=== PATIENT | female | born 1940 | race Caucasian/White ===

== ENCOUNTER 2017-06-27 10:30 | Day surgery (SDC) | payer MEDICARE, OTHER ==
[~2017-06-27] VITALS: Ht 157.5 cm; Wt 80.7 kg
[~2017-06-27 10:30] MED LIST: ATOR80TA PO; BUPR150T73 PO; ESCI20TA PO; LEVO200T5 PO; LITH300T3 PO; LORA0.5T PO; METF500T4 PO; METO25TA91 PO; OMEP-110 PO; ZIPR80CA3 PO
[2017-06-27] MEDS ORDERED: LACTATED RINGERS 1,000 ML IV SCH (11:17)
[2017-06-27 11:21] VITALS: BP 130/66
[2017-06-27 11:59] LABS: ASPARTATE AMINO TRANSFERASE 8 U/L (15-37); BLOOD UREA NITROGEN 13 mg/dL (7-18)
[2017-06-27] MEDS ORDERED: METOPROLOL 1 MG/ML, 5ML ONE (12:36)
[2017-06-27] MEDS ORDERED: LIDOCAINE 2%, 10ML ONE (12:36)
[2017-06-27] MEDS ORDERED: PROPOFOL 10 MG/ML, 20ML ONE ×2 (12:36)
== END 2017-06-27 17:20 ==
LOC: OUT 10:30
PROVIDERS: ATTEND Internal Medicine
DX: K29.50 Unspecified chronic gastritis without bleeding (principal); K57.30 Diverticulosis of large intestine without perforation or abscess without bleeding; K64.8 Other hemorrhoids; J44.9 Chronic obstructive pulmonary disease, unspecified; F41.9 Anxiety disorder, unspecified; I10 Essential (primary) hypertension; K21.9 Gastro-esophageal reflux disease without esophagitis; Z85.048 Personal history of other malignant neoplasm of rectum, rectosigmoid junction, and anus; Z87.39 Personal history of other diseases of the musculoskeletal system and connective tissue; Z98.890 Other specified postprocedural states; Z90.710 Acquired absence of both cervix and uterus; Z95.0 Presence of cardiac pacemaker
CPT/HCPCS: 36415; 43239; 45380; 80053; 88305; 93005; J2704; J3490; J7120

== ENCOUNTER 2018-07-18 17:47 | Inpatient (IN) | payer MEDICARE ==
[~2018-07-18] VITALS: Ht 157.5 cm; Wt 79.2 kg
[~2018-07-18 17:47] MED LIST changes: +METF500T17 PO; -METF500T4 PO
[2018-07-19 10:38] VITALS: BP 127/75
[2018-07-19] MEDS ORDERED: DOCUSATE 100 MG CAPSULE PO PRN (11:30)
[2018-07-19] MEDS ORDERED: POLYETHYLENE GLYCOL 17 GM PACKET PO PRN (11:30)
[2018-07-19] MEDS ORDERED: APIX5TAB PO (11:52)
[2018-07-19] MEDS ORDERED: FLUC100T4 PO (11:52)
[2018-07-19] MEDS ORDERED: PLEASE ENTER HEIGHT AND WEIGHT MC SCH (12:00)
[2018-07-19 12:47] VITALS: BP 127/75
[2018-07-19 15:46] LABS: CHOL/HDL RATIO 3.4; FREE T4 (FREE THYROXINE) 0.83 ng/dL (0.76-1.46); LDL/HDL RATIO 1.8 (0.5-3.0); THYROID STIMULATING HORMONE 8.06 mIU/L (0.358-3.740)
[2018-07-19] MEDS ORDERED: NICOTINE 21 MG/24 HR PATCH.TD24 TD ONE (16:00)
[2018-07-19] MEDS: NICOTINE 21 MG/24 HR PATCH.TD24 TD SCH (17:09)
[2018-07-19] MEDS ORDERED: ALBUTEROL SULFATE 2.5 MG/3 ML NPPB PRN (18:00)
[2018-07-19 19:33] VITALS: BP 142/90
[2018-07-19] MEDS ORDERED: TEMPLATE NON-FORMULARY MED. (Escitalopram Oxalate** 20 MG) PO SCH (21:00)
[2018-07-19] MEDS: CLOTRIMAZOLE CRM 1%, 15GM TP SCH (21:00)
[2018-07-19] MEDS: DIVALPROEX 250 MG TABLET.DR PO SCH (21:20)
[2018-07-19] MEDS: APIXABAN 5 MG TABLET PO SCH (21:22)
[2018-07-19] MEDS: ACETAMINOPHEN 325 MG TABLET PO PRN (23:56)
[2018-07-20 04:43] LABS: MICROSCOPIC NOT IND
[2018-07-20 04:50] LABS: CULTURE INDICATED? NO
[2018-07-20 05:20] LABS: ANION GAP 7 mmol/L (5-15); BASOPHILS # (AUTO) 0.05 x10^3/uL (0-0.1); BASOPHILS % (AUTO) 1 % (0-1); CHLORIDE 106 mmol/L (98-107); CREATININE 0.75 mg/dL (0.55-1.02); EOSINOPHILS # (AUTO) 0.29 x10^3/uL (0-0.4); EOSINOPHILS % (AUTO) 4 % (1-7); LYMPHOCYTES # (AUTO) 1.57 x10^3/uL (1-3.4); LYMPHOCYTES % (AUTO) 22 % (22-44); MD NO; MEAN CORPUSCULAR HEMOGLOBIN 29.6 pg (27.0-34.8); MEAN CORPUSCULAR HGB CONC 33.2 g/dL (32.4-35.8); MEAN CORPUSCULAR VOLUME 89.2 fL (80-100); MEAN PLATELET VOLUME 8.6 fL (7.4-10.4); MONOCYTES # (AUTO) 0.51 x10^3/uL (0.2-0.8); MONOCYTES % (AUTO) 7 % (2-9); NEUTROPHILS # (AUTO) 4.59 x10^3/uL (1.8-6.8); NEUTROPHILS % (AUTO) 66 % (42-75); PLATELET COUNT 244 x10^3/uL (130-400); RED BLOOD COUNT 4.39 x10^6/uL (3.82-5.3); RED CELL DISTRIBUTION WIDTH 17.1 % (9.6-15.2)
[2018-07-20 07:55] VITALS: BP 115/68
[2018-07-20] MEDS ORDERED: FLUCONAZOLE 100 MG PO SCH (09:00)
[2018-07-20] MEDS ORDERED: FLUCONAZOLE 100 MG TABLET PO SCH (09:00)
[2018-07-20] MEDS: LEVOTHYROXINE 200 MCG TABLET PO SCH (09:14)
[2018-07-20] MEDS: DIVALPROEX 250 MG TABLET.DR PO SCH ×2 (09:15→20:48)
[2018-07-20] MEDS: APIXABAN 5 MG TABLET PO SCH ×2 (09:15→20:48)
[2018-07-20] MEDS: ZIPRASIDONE 40MG CAPSULE PO SCH (09:15)
[2018-07-20] MEDS: metFORMIN 500 MG TABLET PO SCH (09:15)
[2018-07-20] MEDS: METOPROLOL SUCCINATE 25 MG TAB.ER.24H PO SCH (09:16)
[2018-07-20] MEDS: NICOTINE 21 MG/24 HR PATCH.TD24 TD SCH (17:12)
[2018-07-20] MEDS: CITALOPRAM 20 MG TABLET PO SCH (20:48)
[2018-07-20] MEDS: CLOTRIM/BETAMETH 1%/0.05% CRM TP SCH (20:52)
[2018-07-21] MEDS ORDERED: HYDROcodone/CHLORPHENIR ORAL SUSP PO ONE ×2 (02:30→03:00)
[2018-07-21] MEDS: LORazepam 0.5MG TABLET PO PRN (03:12)
[2018-07-21 08:17] VITALS: BP 103/66
[2018-07-21 08:42] VITALS: BP 110/68
[2018-07-21] MEDS: LEVOTHYROXINE 200 MCG TABLET PO SCH (08:43)
[2018-07-21] MEDS: ZIPRASIDONE 40MG CAPSULE PO SCH (08:43)
[2018-07-21] MEDS: METOPROLOL SUCCINATE 25 MG TAB.ER.24H PO SCH (08:43)
[2018-07-21] MEDS: APIXABAN 5 MG TABLET PO SCH ×2 (08:44→19:44)
[2018-07-21] MEDS: DIVALPROEX 250 MG TABLET.DR PO SCH ×2 (08:44→19:44)
[2018-07-21] MEDS: metFORMIN 500 MG TABLET PO SCH (08:44)
[2018-07-21] MEDS: CLOTRIM/BETAMETH 1%/0.05% CRM TP SCH ×2 (09:12→20:16)
[2018-07-21] MEDS: FLUCONAZOLE 100 MG TABLET PO SCH (09:50)
[2018-07-21] MEDS: NICOTINE 21 MG/24 HR PATCH.TD24 TD SCH (15:51)
[2018-07-21] MEDS: CITALOPRAM 20 MG TABLET PO SCH (19:44)
[2018-07-21 19:50] VITALS: BP 101/69
[2018-07-22 07:30] VITALS: BP 111/74
[2018-07-22] MEDS ORDERED: LEVOTHYROXINE 100 MCG TABLET ONE (07:35)
[2018-07-22] MEDS: LEVOTHYROXINE 200 MCG TABLET PO SCH (07:37)
[2018-07-22] MEDS: CLOTRIM/BETAMETH 1%/0.05% CRM TP SCH ×2 (09:00→20:05)
[2018-07-22] MEDS: METOPROLOL SUCCINATE 25 MG TAB.ER.24H PO SCH (09:01)
[2018-07-22] MEDS: metFORMIN 500 MG TABLET PO SCH (09:01)
[2018-07-22] MEDS: FLUCONAZOLE 100 MG TABLET PO SCH (09:02)
[2018-07-22] MEDS: APIXABAN 5 MG TABLET PO SCH ×2 (09:02→20:04)
[2018-07-22] MEDS: ZIPRASIDONE 40MG CAPSULE PO SCH (09:03)
[2018-07-22] MEDS: DIVALPROEX 250 MG TABLET.DR PO SCH (09:03)
[2018-07-22] MEDS: LORazepam 0.5MG TABLET PO PRN (15:09)
[2018-07-22] MEDS: NICOTINE 21 MG/24 HR PATCH.TD24 TD SCH (16:14)
[2018-07-22 19:47] VITALS: BP 134/61
[2018-07-22] MEDS: ACETAMINOPHEN 325 MG TABLET PO PRN (20:04)
[2018-07-22] MEDS: DIVALPROEX 500 MG TABLET.DR PO SCH (20:04)
[2018-07-22] MEDS: CITALOPRAM 20 MG TABLET PO SCH (20:04)
[2018-07-23] MEDS: ACETAMINOPHEN 325 MG TABLET PO PRN ×2 (02:29→20:21)
[2018-07-23] MEDS: LORazepam 0.5MG TABLET PO PRN (07:41)
[2018-07-23 07:45] VITALS: BP 119/72
[2018-07-23] MEDS: APIXABAN 5 MG TABLET PO SCH ×2 (08:49→20:11)
[2018-07-23] MEDS: DIVALPROEX 250 MG TABLET.DR PO SCH (08:49)
[2018-07-23] MEDS: FLUCONAZOLE 100 MG TABLET PO SCH (08:49)
[2018-07-23] MEDS: METOPROLOL SUCCINATE 25 MG TAB.ER.24H PO SCH (08:50)
[2018-07-23] MEDS: metFORMIN 500 MG TABLET PO SCH (08:50)
[2018-07-23] MEDS: LEVOTHYROXINE 200 MCG TABLET PO SCH (08:50)
[2018-07-23] MEDS: CLOTRIM/BETAMETH 1%/0.05% CRM TP SCH ×2 (08:51→20:21)
[2018-07-23] MEDS: ZIPRASIDONE 40MG CAPSULE PO SCH (08:54)
[2018-07-23] MEDS ORDERED: DIVALPROEX 250 MG TABLET.DR PO SCH (09:00)
[2018-07-23] MEDS: NICOTINE 21 MG/24 HR PATCH.TD24 TD SCH (16:05)
[2018-07-23 19:47] VITALS: BP 108/64
[2018-07-23] MEDS: DIVALPROEX 500 MG TABLET.DR PO SCH (20:12)
[2018-07-23] MEDS: CITALOPRAM 20 MG TABLET PO SCH (20:12)
[2018-07-24] MEDS: LORazepam 0.5MG TABLET PO PRN (07:35)
[2018-07-24 07:49] VITALS: BP 120/74
[2018-07-24] MEDS: APIXABAN 5 MG TABLET PO SCH ×2 (08:48→21:17)
[2018-07-24] MEDS: FLUCONAZOLE 100 MG TABLET PO SCH (08:48)
[2018-07-24] MEDS: DIVALPROEX 250 MG TABLET.DR PO SCH (08:48)
[2018-07-24] MEDS: ZIPRASIDONE 40MG CAPSULE PO SCH (08:49)
[2018-07-24] MEDS: LEVOTHYROXINE 200 MCG TABLET PO SCH (08:49)
[2018-07-24] MEDS: metFORMIN 500 MG TABLET PO SCH (08:49)
[2018-07-24] MEDS: METOPROLOL SUCCINATE 25 MG TAB.ER.24H PO SCH (08:50)
[2018-07-24] MEDS: CLOTRIM/BETAMETH 1%/0.05% CRM TP SCH ×2 (08:50→21:18)
[2018-07-24] MEDS: NICOTINE 21 MG/24 HR PATCH.TD24 TD SCH (16:06)
[2018-07-24] MEDS ORDERED: LEVO200T5 PO (17:59)
[2018-07-24] MEDS ORDERED: CITA20TA9 PO (17:59)
[2018-07-24] MEDS ORDERED: DIVA-61 PO (17:59)
[2018-07-24] MEDS ORDERED: ZIPR80CA3 PO (17:59)
[2018-07-24] MEDS ORDERED: METO25TA91 PO (17:59)
[2018-07-24] MEDS ORDERED: METF500T PO (17:59)
[2018-07-24] MEDS ORDERED: NICO-487 TD (17:59)
[2018-07-24] MEDS ORDERED: APIX5TAB PO (17:59)
[2018-07-24] MEDS ORDERED: DIVA-59 PO (17:59)
[2018-07-24 19:39] VITALS: BP 120/77
[2018-07-24] MEDS: DIVALPROEX 500 MG TABLET.DR PO SCH (21:17)
[2018-07-24] MEDS: CITALOPRAM 20 MG TABLET PO SCH (21:17)
[2018-07-24] MEDS: ACETAMINOPHEN 325 MG TABLET PO PRN (21:17)
[2018-07-25] MEDS: ACETAMINOPHEN 325 MG TABLET PO PRN (04:41)
[2018-07-25] MEDS: LORazepam 0.5MG TABLET PO PRN (07:29)
[2018-07-25 07:30] VITALS: BP 110/68
[2018-07-25] MEDS: FLUCONAZOLE 100 MG TABLET PO SCH (08:55)
[2018-07-25] MEDS: DIVALPROEX 250 MG TABLET.DR PO SCH (08:55)
[2018-07-25] MEDS: APIXABAN 5 MG TABLET PO SCH (08:55)
[2018-07-25] MEDS: ZIPRASIDONE 40MG CAPSULE PO SCH (08:56)
[2018-07-25] MEDS: metFORMIN 500 MG TABLET PO SCH (08:56)
[2018-07-25] MEDS: LEVOTHYROXINE 200 MCG TABLET PO SCH (08:56)
[2018-07-25] MEDS: CLOTRIM/BETAMETH 1%/0.05% CRM TP SCH (08:57)
[2018-07-25] MEDS: METOPROLOL SUCCINATE 25 MG TAB.ER.24H PO SCH (08:57)
== END 2018-07-25 12:00 | disposition home or self-care (01) | DRG 885 ==
LOC: 3E 07-19 10:29
PROVIDERS: ADMIT Psychiatry & Neurology Psychosomatic Medicine; ATTEND Psychiatry & Neurology Psychosomatic Medicine
DX: F31.2 Bipolar disorder, current episode manic severe with psychotic features (principal); J96.10 Chronic respiratory failure, unspecified whether with hypoxia or hypercapnia; D68.59 Other primary thrombophilia; B37.0 Candidal stomatitis; Z95.0 Presence of cardiac pacemaker; F17.200 Nicotine dependence, unspecified, uncomplicated; E11.9 Type 2 diabetes mellitus without complications; E03.9 Hypothyroidism, unspecified; K21.9 Gastro-esophageal reflux disease without esophagitis; J44.9 Chronic obstructive pulmonary disease, unspecified; F90.9 Attention-deficit hyperactivity disorder, unspecified type; F41.9 Anxiety disorder, unspecified; K64.8 Other hemorrhoids; I10 Essential (primary) hypertension; I48.0 Paroxysmal atrial fibrillation; K22.70 Barrett's esophagus without dysplasia; K31.9 Disease of stomach and duodenum, unspecified; Z79.84 Long term (current) use of oral hypoglycemic drugs; Z79.899 Other long term (current) drug therapy; Z90.710 Acquired absence of both cervix and uterus; Z91.19 Patient's noncompliance with other medical treatment and regimen; Z71.6 Tobacco abuse counseling; Z88.2 Allergy status to sulfonamides; Z88.8 Allergy status to other drugs, medicaments and biological substances; Z90.89 Acquired absence of other organs
CPT/HCPCS: 36415; 71045; 80048; 80061; 80164; 81003; 82140; 82607; 84439; 84443; 85025; 86592; 93005; 92523-GN

== ENCOUNTER 2019-01-14 16:42 | Emergency (ER) | payer MEDICARE ==
[~2019-01-14] VITALS: Ht 162.6 cm; Wt 73.8 kg
[~2019-01-14 16:42] MED LIST changes: +APIX5TAB PO; +CITA20TA9 PO; +DIVA-59 PO; +DIVA-61 PO; +FLUC100T4 PO; +METF500T PO; +NICO-487 TD
[2019-01-14] MEDS ORDERED: SODIUM CHLORIDE FLUSH 10ML SYR IVF ONE (17:00)
[2019-01-14] MEDS ORDERED: PLEASE ENTER HEIGHT AND WEIGHT MC SCH (17:00)
--- NOTE | 2019-01-14 17:00 | NUR ---
PT FOUND AT HOME WITH NO FOOD OR MEDICATIONS. PT REPORTS NOT EATING OR DRINKING FOR A FEW DAYS. PT APPEARS TO NOT BE ABLE TO CARE FOR HERSELF AT THIS TIME. PT FOLLOWING COMMANDS BUT HAS MULTIPLE THOUGHTS AT ONCE. PT ATTEMPTING TO REACH SONS BUT HAS HAD NO LUCK. PT CONNECTED TO MONITORS AND CALL LIGHT IN REACH. VSS
[2019-01-14 17:41] LABS: BASOPHILS # (AUTO) 0.04 x10^3/uL (0-0.1); BASOPHILS % (AUTO) 1 % (0-1); EOSINOPHILS # (AUTO) 0.21 x10^3/uL (0-0.4); EOSINOPHILS % (AUTO) 3 % (1-7); LYMPHOCYTES # (AUTO) 1.69 x10^3/uL (1-3.4); LYMPHOCYTES % (AUTO) 21 % (22-44); MD NO; MEAN CORPUSCULAR HEMOGLOBIN 31.3 pg (27.0-34.8); MEAN CORPUSCULAR HGB CONC 33.5 g/dL (32.4-35.8); MEAN CORPUSCULAR VOLUME 93.3 fL (80-100); MEAN PLATELET VOLUME 8.7 fL (7.4-10.4); MONOCYTES # (AUTO) 0.53 x10^3/uL (0.2-0.8); MONOCYTES % (AUTO) 7 % (2-9); NEUTROPHILS # (AUTO) 5.74 x10^3/uL (1.8-6.8); NEUTROPHILS % (AUTO) 70 % (42-75); PLATELET COUNT 252 x10^3/uL (130-400); RED BLOOD COUNT 4.88 x10^6/uL (3.82-5.3); RED CELL DISTRIBUTION WIDTH 14.3 % (9.6-15.2)
[2019-01-14 17:48] LABS: INTERNATIONAL NORMALIZED RATIO 0.94 (0.93-1.1); PROTHROMBIN TIME 9.9 Seconds (9.6-11.5)
[2019-01-14 17:51] LABS: ALANINE AMINOTRANSFERASE 24 U/L (12-78); ALBUMIN 4.1 g/dL (3.4-5.0); ANION GAP 5 mmol/L (5-15); CALCIUM 9.3 mg/dL (8.5-10.1); CHLORIDE 110 mmol/L (98-107)
[2019-01-14 17:54] LABS: ALKALINE PHOSPHATASE 110 U/L (45-117); BILIRUBIN,TOTAL 0.3 mg/dL (0.2-1.0); TOTAL PROTEIN 7.5 g/dL (6.4-8.2)
[2019-01-14 18:23] LABS: MICROSCOPIC NOT IND
[2019-01-14 18:25] LABS: CULTURE INDICATED? NO
[2019-01-14 18:31] VITALS: BP 124/78
--- NOTE | 2019-01-14 19:04 | NUR ---
SON KATHY CALLED AND DC PLAN INTIATED. SOCIAL WORK AWARE AT THIS TIME.
[2019-01-14] MEDS ORDERED: ESCI5TAB PO (19:15)
[2019-01-14] MEDS ORDERED: OMEP-110 PO (19:15)
[2019-01-14] MEDS ORDERED: HYDR-3237 PO (19:15)
[2019-01-14] MEDS ORDERED: ATOR20TA37 PO (19:15)
[2019-01-14] MEDS ORDERED: FURO20TA3 PO (19:15)
[2019-01-14] MEDS ORDERED: BUPR150T6 PO (19:15)
--- NOTE | 2019-01-14 20:29 | NUR ---
Patient/Caregiver given discharge instructions and they have confirmed that they understand the instructions. Patient ambulatory with steady gait.
--- NOTE | 2019-01-14 20:30 | NUR ---
SON AT BEDSIDE AND VERBALIZED D/C INSTRUCTIONS. HE WILL TAKE HER HOME.
== END 2019-01-14 20:31 | disposition home or self-care (01) ==
LOC: ED 17:41
DX: R62.7 Adult failure to thrive (principal); Z00.01 Encounter for general adult medical examination with abnormal findings; I10 Essential (primary) hypertension; E11.9 Type 2 diabetes mellitus without complications; F31.9 Bipolar disorder, unspecified; F17.200 Nicotine dependence, unspecified, uncomplicated
CPT/HCPCS: 36415; 71045; 80053; 81003; 83605; 83690; 85025; 85610; 85730; 87040; 93005; 99284

== ENCOUNTER 2019-09-28 09:35 | Day surgery (SDC) | payer MEDICARE ==
[~2019-09-28] VITALS: Ht 160 cm; Wt 81.3 kg
[~2019-09-28 09:35] MED LIST changes: +ATOR20TA37 PO; +BUPR150T6 PO; +ESCI5TAB PO; +FURO20TA3 PO; +HYDR-3237 PO
[2019-09-28 10:09] VITALS: BP 128/84
[2019-09-28] MEDS ORDERED: LACTATED RINGERS 1,000 ML IV SCH (10:46)
[2019-09-28] MEDS ORDERED: [UNRECOGNIZED DRUG - OTHER] (11:20)
[2019-09-28] MEDS ORDERED: ACET650T59 PO (11:20)
[2019-09-28] MEDS ORDERED: METO25TA91 PO (11:20)
[2019-09-28] MEDS ORDERED: ASPI-515 PO (11:20)
[2019-09-28] MEDS ORDERED: ONDA4TAB7 PO (11:20)
[2019-09-28] MEDS ORDERED: QUET50TA PO (11:20)
[2019-09-28] MEDS ORDERED: APIX5TAB PO (11:20)
[2019-09-28] MEDS ORDERED: ESCI10TA PO (11:20)
[2019-09-28] MEDS ORDERED: MUPIROCIN (11:20)
[2019-09-28] MEDS ORDERED: BUPR150T73 PO (11:20)
[2019-09-28] MEDS ORDERED: ATROVENT (11:20)
[2019-09-28] MEDS ORDERED: [UNRECOGNIZED DRUG - OTHER] (11:20)
[2019-09-28] MEDS ORDERED: ATOR40TA78 PO (11:20)
[2019-09-28] MEDS ORDERED: LORA-445 PO (11:20)
[2019-09-28] MEDS ORDERED: LEVO200T5 PO (11:20)
[2019-09-28] MEDS ORDERED: METF500T17 PO (11:20)
[2019-09-28 11:56] LABS: ALBUMIN 3.5 g/dL (3.4-5.0); ANION GAP 6 mmol/L (5-15); CHLORIDE 114 mmol/L (98-107)
[2019-09-28 12:00] LABS: ALANINE AMINOTRANSFERASE 25 U/L (12-78); ALKALINE PHOSPHATASE 95 U/L (45-117); BILIRUBIN,TOTAL 0.6 mg/dL (0.2-1.0); CREATININE 0.57 mg/dL (0.55-1.02); TOTAL PROTEIN 6.7 g/dL (6.4-8.2)
[2019-09-28] MEDS ORDERED: KETOROLAC 30 MG/1 ML IV PRN (14:30)
[2019-09-28] MEDS ORDERED: ONDANSETRON 2MG/ML, 2ML IVPush PRN (14:30)
[2019-09-28] MEDS ORDERED: PROMETHAZINE 25 MG/ML, 1ML IV PRN (14:30)
[2019-09-28] MEDS ORDERED: MEPERIDINE/PF 25MG/0.5ML IVPush PRN (14:30)
[2019-09-28] MEDS ORDERED: OXYcodone 5 MG/5 ML ORAL.SOL UDC PO PRN (14:30)
[2019-09-28] MEDS ORDERED: METOCLOPRAMIDE 5 MG/ML, 2ML IV PRN (14:30)
[2019-09-28] MEDS ORDERED: HYDROmorphone 1 MG/ML, 1ML INJ IV PRN (14:30)
[2019-09-28] MEDS ORDERED: hydrALAzine 20 MG/ML, 1ML IV PRN (14:30)
[2019-09-28] MEDS ORDERED: ALBUTEROL SULFATE 2.5 MG/3 ML NPPB PRN (14:30)
[2019-09-28] MEDS ORDERED: LABETALOL 5MG/ML, 20ML IV PRN (14:30)
[2019-09-28] MEDS ORDERED: FENTANYL PF 100 MCG/2ML IV PRN (14:30)
[2019-09-28] MEDS ORDERED: PROPOFOL 10 MG/ML, 20ML ONE (15:11)
[2019-09-28] MEDS ORDERED: SUCCINYLCHOLINE 20 MG/ML, 10ML ONE (15:11)
[2019-09-28] MEDS ORDERED: ONDANSETRON 2MG/ML, 2ML ONE (15:11)
== END 2019-09-28 16:20 | disposition home or self-care (01) ==
LOC: OR 09:35 → OUT 16:20
PROVIDERS: ATTEND Internal Medicine
DX: K62.5 Hemorrhage of anus and rectum (principal); K62.89 Other specified diseases of anus and rectum; I10 Essential (primary) hypertension; F17.210 Nicotine dependence, cigarettes, uncomplicated; F15.90 Other stimulant use, unspecified, uncomplicated; Z85.038 Personal history of other malignant neoplasm of large intestine; Z90.10 Acquired absence of unspecified breast and nipple; Z98.890 Other specified postprocedural states; Z95.0 Presence of cardiac pacemaker
CPT/HCPCS: 36415; 45380; 80053; 88305; 93005; J0330; J2405; J2704; J7120